=== PATIENT | male | born 1990 | race American Indian/Alaskan Native ===

== ENCOUNTER 2017-11-28 16:32 | Emergency (ER) | payer OTHER ==
[2017-11-28] MEDS ORDERED: Ketorolac 60 MG/2 ML SDV IM ONE (17:43)
[2017-11-28] MEDS ORDERED: Lidocaine 1% with EPINEPHrine 1:100,000 50 ML MDV INFILT ONE (17:43)
[2017-11-28] MEDS ORDERED: Bacitracin Oint 1 GM U/D Packet TOP ONE (17:43)
[2017-11-28] MEDS ORDERED: Amoxicillin/Clavulanate K 875-125 MG Tab PO ONE (17:53)
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
== END 2017-11-28 19:26 | disposition home or self-care (01) ==
LOC: JP.ED 16:32
DX: S01.511A Laceration without foreign body of lip, initial encounter (principal); S02.5XXA Fracture of tooth (traumatic), initial encounter for closed fracture; S00.03XA Contusion of scalp, initial encounter; S00.83XA Contusion of other part of head, initial encounter; Z88.6 Allergy status to analgesic agent; Y08.89XA Assault by other specified means, initial encounter
CPT/HCPCS: 12052; 13132; 96372; 99283; A9270; J1885; 12011